=== PATIENT | female | born 1990 | race Hispanic/Latino ===

== ENCOUNTER 2024-10-30 22:51 | Emergency (ER) | payer OTHER, MEDICAID ==
[~2024-10-30] VITALS: Ht 162.6 cm; Wt 99.8 kg
--- NOTE | 2024-10-30 22:56 | NUR ---
UA CUP PROVIDED
--- NOTE | 2024-10-30 23:23 | NUR ---
UA COLLECTED AND SENT
[2024-10-30 23:42] LABS: APPEARANCE,URINE CLEAR (CLEAR); GLUCOSE, URINE (UA) >=1000 mg/dL (NEGATIVE); LEUKOCYTE ESTERASE ,URINE 25 Leu/uL (NEGATIVE); NITRATE,URINE NEGATIVE (NEGATIVE); OCCULT BLOOD,URINE NEGATIVE (NEGATIVE)
[2024-10-30 23:43] LABS: ADD UA MICROSCOPIC YES
[2024-10-30 23:44] LABS: SQUAMOUS EPITHELIAL CELL,UR FEW /HPF (0-2)
--- NOTE | 2024-10-31 00:50 | NUR ---
PT CALLED, NO ANSWER
[2024-10-31 01:00] VITALS: TEMP 98.2
[2024-10-31 01:10] LABS: IMMATURE GRANULOCYTE ABSOLUTE 0.06 K/uL (0-1); NUCLEATED RED BLOOD CELLS 0.0 % (0.0-0.19); PLATELET COUNT (AUTO) 231 K/uL (130-400); RED BLOOD CELL COUNT(AUTO) 3.89 MIL/uL (4.00-5.50); RED CELL DISTRIBUTION WIDTH 12.7 % (11.0-15.5); WHITE BLOOD COUNT (AUTO) 10.2 K/uL (4.8-10.8)
--- NOTE | 2024-10-31 01:11 | NUR ---
PT SITTING IN LOBBY ALONG WINDOWS WITH FAMILY MEMBER. ON PHONE, INTERACTING WELL. GOOD CHEST RISE AND FALL OBSERVED
[2024-10-31 01:18] LABS: CREATININE 0.5 mg/dL (0.5-1.0); GLOMERULAR FILTR. RATE CALC 126.0 mL/min (>90); GLUCOSE,RANDOM 212.0 mg/dL (70-105); SODIUM SERUM 135.0 mmol/L (136-145); UREA NITROGEN, BLOOD 10.0 mg/dL (7-18)
--- NOTE | 2024-10-31 01:38 | HMCIMG ---
EXAM: US Obstetrical, Complete > 14 weeks CLINICAL HISTORY: ABD CRAMPING, APROX 27.4 WEEKS. DENIES VAGINAL BLEEDING Technologist comments: insurance= TECHNIQUE: Transabdominal imaging of the maternal pelvis and a > 14 week gestation with image documentation. COMPARISON: None. FINDINGS: FETUS: There is a single living intrauterine gestation, estimated gestational age 28 weeks and 0 days. POSITION: position is cephalic. HEART RATE: The heart rate is 136 beats per minute. BIOMETRICS: Based on composite biometry, the estimated gestational age by ultrasound is 28 weeks, 0 days. ANATOMIC SURVEY: The visualized anatomy is unremarkable. PLACENTA: The placenta is anterior. No demonstrated evidence of previa or abruption. AMNIOTIC FLUID: Within normal limits. CERVIX: Closed. Unremarkable as visualized. SONOGRAPHIC MEASUREMENTS: Composite ultrasound age: 28 weeks, 0 days (average). Estimated date of delivery: January 22, 2025. heart rate: 136 beats per minute. BPD correlates with 6.9 cm (average), 27 weeks, 6 days HC correlates with 26.3 cm (average), 28 weeks, 4 days AC correlates with 24.2 cm (average), 28 weeks, 4 days FL correlates with 5 cm (average), 26 weeks, 5 days HL correlates with, Estimated weight: 1139 grams FL/AC: 20.4 (average) FL/BPD: 71.5 (average) FL/HC: 18.8 (average) Cephalic Index: 77.7 (average) HC/AC: 1.1 (average) Amniotic fluid index is 21.7 cm (average). JODY First quadrant length is: 7.2 cm (average) JODY Second quadrant length is: 7.3 cm (average) JODY Third quadrant length is: 4.1 cm (average) JODY Fourth quadrant length is: 3.1 cm (average) IMPRESSION: Single living intrauterine gestation estimated at 28 weeks, 0 days by today's ultrasound criteria. No acute abnormality. /[place]
[2024-10-31 01:47] LABS: HCG,QUANTITATIVE 29799.0 mIU/mL (0-5)
--- NOTE | 2024-10-31 02:01 | ERN ---
ED Note History of Present Illness Stated Complaint: UPPER/LOWER EXTREMITY SWELLING, VOMITING, CRAMPING Chief Complaint: OB>20 weeks gest. Time Seen by MD: 00:07 Dictation: This is a 34-year-old female from [facility], [place] visiting her grandmother and family here began experiencing cramping and ongoing vomitings. Apparently she had 4-5 times bilious vomitings and she felt dehydrated and came in for evaluation. She stated that the whole she had hyperemesis gravidarum. She was also concerned about swelling all over. No abdominal pain hematemesis or melena she stated that she has had poor p.o. intake. For her nausea and hyperemesis she has been tried on Zofran, promethazine, Reglan and also Unisom with a vitamin B6 Patient by her we will he has approximately 27.4 weeks. She is G3 ab 2 with a due date of 01/25/2025 Patient also reported that she had had gestational diabetes which has been poorly controlled Temperature 98 pulse 109 respirations 20 blood pressure 128/73 with a pulse oximetry of 99% on room air Allergies: Coded Allergies: promethazine (Unverified Allergy, Unknown, 10/30/24) Past Medical History Past Medical History: Diabetes-Type II, Other Additional Past Medical Hx: GD Surgical History: Tonsillectomy, Cholecystectomy Family History: Negative Social History: Negative : 3 Aborts: 2 RN Note Reviewed/Agreed w/PFSH: Yes Review of System Dictation Constitutional: Negative for fever,chills, and weight loss Eyes: Negative for injury, pain,redness, and discharge ENT: Negative for injury,pain or swelling Cardiovascular: Negative for chest pain, palpitations, and edema Respiratory: Negative for shortness of breath, cough, and wheezing, Abdomen/GI: Negative for abdominal pain, diarrhea, and constipation positive for nausea, vomiting, Back: Negative for injury and pain : Negative for injury, bleeding and discharge MS/Extremity: Negative for injury and deformity Skin: Negative for rash, and discoloration Neuro: Negative for headache, weakness, numbness, tingling, and seizure Psych: Negative for suicide ideation, homicidal ideation, and hallucinations Initial Vital Sign VS Vital Signs Date Time Temp Pulse Resp B/P (MAP) Pulse Ox O2 Delivery O2 Flow Rate FiO2 10/30/24 22:52 98.1 109 20 128/73 99 Room Air Physical Exam Dictation General: awake, alert, NAD Head/Face: Normocephalic, atraumatic Eyes: PERRL, EOMI, vision at baseline ENT: oral cavity clear, TMs clear, no signs of infection poor dentition Neck: Trachea midline, supple, no nuchal rigidity Cardiovascular: RRR, normal S1/S2, No MRGs, no JVD Respiratory: CTAB, no respiratory distress, No rales or wheezes Abdomen: Soft, non-tender, non-distended, normal bowel sounds, no guarding or rebound. Gravid uterus Skin: Warm, dry, normal turgor, no rash MS/Extremity: Pulses equal, no cyanosis, neurovascular intact, FROM Neuro: COAx4, GCS 15, strength 5/5, CN 2-12 intact, normal cerebellar exam, normal gait, Psych: Normal behavior, mood, and affect normal Extremities-trace edema without any palpable cords, Homans sign is negative Results (Laboratory/Radiology) Laboratory/Radiology Laboratory Tests Test 10/30/24 23:23 10/31/24 00:59 Urine Color LIGHT-YELLOW (YELLOW) Urine Appearance CLEAR (CLEAR) Urine pH 6.5 (5.0-8.0) Urine Specific [place] 1.028 (1.001-1.031) Urine Protein NEGATIVE mg/dL (NEGATIVE) Urine Glucose (UA) >=1000 mg/dL (NEGATIVE) H Urine Ketones NEGATIVE mg/dL (NEGATIVE) Urine Occult Blood NEGATIVE (NEGATIVE) Urine Nitrate NEGATIVE (NEGATIVE) Urine Bilirubin NEGATIVE mg/dL (NEGATIVE) Urine Urobilinogen 0.2 mg/dL (0.2-1.0) Urine Leukocyte Esterase 25 [place]/uL (NEGATIVE) H Urine RBC 0-1 /HPF (0-1) Urine WBC 2-5 /HPF (0-1) H Urine Squamous Epithelial Cells FEW /HPF (0-2) Urine Bacteria FEW /HPF (None Seen) White Blood Count 10.2 K/uL (4.8-10.8) Red Blood Count 3.89 MIL/uL (4.00-5.50) L Hemoglobin 12.3 g/dL (12.0-16.0) Hematocrit 35.3 % (36-48) L Mean Corpuscular Volume 90.7 fL (79-99) Mean Corpuscular Hemoglobin 31.6 pg (27.0-33.0) Mean Corpuscular Hemoglobin Concent 34.8 g/dL (32.0-36.0) Red Cell Distribution Width 12.7 % (11.0-15.5) Platelet Count 231 K/uL (130-400) Mean Platelet Volume 11.2 fL (7.5-10.5) H Immature Granulocyte % (Auto) 0.6 % (0-1) Neutrophils (%) (Auto) 68.0 % (40.0-77.0) Lymphocytes (%) (Auto) 22.1 % (21.0-51.0) Monocytes (%) (Auto) 7.7 % (3.0-13.0) Eosinophils (%) (Auto) 1.3 % (0.0-8.0) Basophils (%) (Auto) 0.3 % (0.0-5.0) Neutrophils # (Auto) 7.0 K/uL (1.8-7.7) Lymphocytes # (Auto) 2.3 K/uL (1.0-4.8) Monocytes # (Auto) 0.8 K/uL (0.1-1.0) Eosinophils # (Auto) 0.13 K/uL (0.00-0.70) Basophils # (Auto) 0.03 K/uL (0.00-0.20) Absolute Immature Granulocyte (auto 0.06 K/uL (0-1) Nucleated Red Blood Cells 0.0 % (0.0-0.19) Sodium Level 135 mmol/L (136-145) L Potassium Level 3.9 mmol/L (3.5-5.1) Chloride Level 104 mmol/L (101-111) Carbon Dioxide Level 23 mmol/L (21-32) Blood Urea Nitrogen 10 mg/dL (7-18) Creatinine 0.5 mg/dL (0.5-1.0) Glomerular Filtration Rate Calc 126 mL/min (>90) Random Glucose 212 mg/dL (70-105) H Total Calcium 8.5 mg/dL (8.5-10.1) Human Chorionic Gonadotropin, Quant 76821 mIU/mL (0-5) H Labs Reviewed?: Yes ED Course ED Course Orders Procedure Category Date Status Time Urinalysis Profile LAB 10/30/24 Complete 23:24 Hcg,Quantitative LAB 8/16/25 Complete 23:29 Cbc With Differential LAB 10/30/24 Complete 23:29 Basic Metabolic Panel LAB 10/30/24 Complete 23:29 Us Ob >14 Weeks US 10/30/24 Resulted 23:29 0.9%Nacl 1000ml (Ns PHA 10/31/24 Complete 1000ml) 02:30 Ondansetron 4mg Inj PHA 10/31/24 Complete (Zofran 4mg Inj) 02:30 Current Medications Medications (Trade) Dose Ordered Sig/Megan Route PRN Reason Start Time Stop Time Status Last Admin Dose Admin Ondansetron HCl (zoFRAN 4MG INJ) 4 mg ONCE ONCE IVP 10/31/24 02:30 10/31/24 02:31 DC 10/31/24 02:29 Sodium Chloride 1,000 ml @ 0 mls/hr ONCE ONCE IV 10/31/24 02:30 10/31/24 02:31 DC 10/31/24 02:28 Vital Signs Date Time Temp Pulse Resp B/P (MAP) Pulse Ox O2 Delivery O2 Flow Rate FiO2 10/30/24 22:52 98.1 109 20 128/73 99 Room Air We will perform diagnostic labs, advanced imaging and administer medications according to the patient's complaint. Once the results are available, will review and personally interpreted the labs to rule out any acute life- threatening emergency the trach require immediate intervention and treatment. I will then re-evaluate the patient after treatment and diagnostic exams have return to determine whether the patient requires any further testing, can safely be discharged home or need further admission to hospital for additional treatment and evaluation. Labs reviewed CBC showed a white count of 10.2 hemoglobin 12.3 platelets 231. BNP 7 [place]. [place] [address]. Urinalysis showed 25 of leuko esterase but no significant WBCs. Ultrasound OB- age 28 weeks with a single intrauterine gestation with heart rate of 136 3:42 a.m. patient completed IV fluids and received antiemetic and feels signific antly improved. We will discharge her to follow up with her OB. Medical Decision Making MDM MDM: Differential diagnosis: Hyperemesis gravidarum, gastroenteritis, medication side effects, Rationale: Tests considered and ordered secondary to shared decision making include: Previous outside records reviewed: Old ER visits. Risk of complication and/or morbidity or mortality of patient management: None Medications-Per medication reconciliation Need for hospitalization: Patient does not meet criteria for hospitalization. Need for emergency major/minor surgery: No There are no social concerns with this patient. Prescription drug management Prescriptions will include symptomatic care Patient's prior external medical records from other ER visits were reviewed by me as indicated. Prior testing and results from previous visits were reviewed. Prior tests were taken into account with medical decision making and resource utilization, independent historian/historians were used to obtain complete medical history. I independently interpreted the test that were performed, results were reviewed by me and considered findings on radiology if ordered. Medical management and examination interpretation discussions were had by me wit h other qualified healthcare professionals as indicated for the patient's care. Problem List Problem List: (1) Hyperemesis gravidarum (2) Dehydration (3) Intrauterine DX & DISP Disposition: Discharge Departure Impression: Primary Impression: Hyperemesis gravidarum Additional Impressions: Dehydration, Intrauterine Condition: Stable Scripts Ondansetron (Ondansetron Odt) 4 Mg Tab.rapdis 4 MG PO Q6HPRN PRN for nausea, #16 TAB 0 Refills Prov: MARLENE REZA MD 10/31/24 Additional Instructions: Patient and the caregiver have been informed of all the diagnostic tests and the imaging conducted during the today's visit to the emergency room and has verbalized understanding of the results I have personally reviewed and interpreted all diagnostic exams performed here in the ER today as well as the vital signs documented by the nursing staff. The patient is now being discharged to home and should follow up with the primary care physician or the specialist as directed by the ER staff. Follow-up with primary care provider in 1 to 2 days. Take medications as directed here in the emergency room. Okay to continue home medications unless otherwise discussed during your visit in the emergency room today. Return to your nearest emergency room if symptoms worsen or if there is no improvement. Call 911 if you need immediate assistance. Take Tylenol or Motrin [id number] as needed and if no contraindications are present. Increase oral hydration. A wound culture or urine culture was ordered here in the emergency room department please follow-up with primary care provider and advise them to get repeat ports from our facility. If you had any [place] wrap/splints that were applied here, please do not remove them until you see your primary care or specialty. Referrals: NONE (PCP) MARLENE REZA MD Oct 31, 2024 02:01
[2024-10-31] MEDS: 0.9%NACL 1000ML 1,000 ML IV ONE (02:28)
[2024-10-31 03:30] VITALS: BP 117/68; PULSE 87; RESP 22; O2SAT 97
[2024-10-31] MEDS ORDERED: ONDA-243 PO (03:41)
== END 2024-10-31 04:04 | disposition home or self-care (01) ==
LOC: EDH 22:51
DX: O21.0 Mild hyperemesis gravidarum (principal); O99.283 Endocrine, nutritional and metabolic diseases complicating pregnancy, third trimester; E86.0 Dehydration; O24.112 Pre-existing type 2 diabetes mellitus, in pregnancy, second trimester; E11.9 Type 2 diabetes mellitus without complications; O26.892 Other specified pregnancy related conditions, second trimester; R10.2 Pelvic and perineal pain; Z90.89 Acquired absence of other organs; Z90.49 Acquired absence of other specified parts of digestive tract; Z3A.28 28 weeks gestation of pregnancy
CPT/HCPCS: 99285; 76805; 80048; 84702; 85025; 81001; 36415; 96374; 96361; J7030; J2405